=== PATIENT | female | born 1990 | race Caucasian/White ===

== ENCOUNTER 2020-07-03 07:48 | Day surgery (SDC) | payer OTHER ==
[~2020-07-03] VITALS: Ht 162.6 cm; Wt 77.7 kg
[2020-07-03] VITALS (7 sets, daily range): BP systolic 98–116; BP diastolic 56–80; PULSE 60–75; TEMP 98–98.3
[2020-07-03] MEDS ORDERED: PROTONIX 40MG T40 MG PO (08:23)
[2020-07-03] MEDS ORDERED: PROZAC40 MG PO (08:24)
[2020-07-03] MEDS ORDERED: KLONOPIN 0.5MG0.5 MG PO (08:25)
[2020-07-03] MEDS ORDERED: ADVIL MIGRAINE200 MG PO (08:26)
[2020-07-03] MEDS ORDERED: CLARITIN 1010 MG/TAB PO (08:27)
--- NOTE | 2020-07-03 09:25 | NUR ---
PATIENT TRANSPORTED PER CART BACK TO BAY 3 ACCOMPANIED BY BHAVIK RN. PATIENT TALKING WITH STAFF. PATIENT AMBULATED FROM CART TO CHAIR WITH STEADY GAIT. IN ROOM. PATIENT REQUESTS DRINK AND FOOD. PATEINT STATES SOME NAUSEA. ENCOURAGED TO START SLOW WITH DRINK.
--- NOTE | 2020-07-03 09:45 | NUR ---
0941 DR VOGEL IN ROOM AND SPEAKS WITH PATIENT AND . 0990 BP 98/66. PATIENT DENIES LIGHTHEADED AND DIZZY. PATIENT EATING MUFFIN AND DRINKING COFFEE. IV FLUID INFUSING. PATIENT STATES NAUSEA IS IMPROVED.
--- NOTE | 2020-07-03 09:54 | NUR ---
PATIENT STATES THAT SHE IS HAVING SOME CHEST DISCOMFORT MID CHEST RATES 2/10 THAT IS INTERMITTANT. VITALS SIGNS TAKEN. VITAL SIGNS STABLE. DISCOURAGED PATIENT FROM DRINKING COFFEE. PATIENT GIVEN SPRITE TO DRINK. NOTIFIED DR VOGEL OF ABOVE VERBALLY. SEE NEW ORDERS PLACED BY DR VOGEL. PHARMACY TO BRING MEDICATION.
--- NOTE | 2020-07-03 10:09 | NUR ---
VSS ON ROOM AIR. PATIENT EATS ALL OF MUFFIN AND DRINKING SPRITE. RECEIVED MAALOX PO FROM PHARMACY. PATIENT GIVEN MAALOX 1010 RECIEVED PROTONIX PO. PATIENT GIVEN PROTONIX.
--- NOTE | 2020-07-03 10:35 | NUR ---
VSS ON ROOM AIR. PATIENT REQUESTS TO USE RESTROOM. PATIENT AMBULATES WITH STEADY GAIT. VOIDS WITHOUT PROBLEMS. PATIENT STATES DISCOMFORT TO CHEST IS STILL LINGERING. SYMPTOMS HAVE NOT WORSENED. 1037 DR VOGEL NOTIFIED BY PHONE OF ABOVE INFORMATION. DR VOGEL RECOMMENDED PATIENT TO CONTINUE MAALOX DIRECTED, CAN GET AT DRUGSTORE. ENCOURAGE A SOFT DIET TODAY.
--- NOTE | 2020-07-03 10:46 | NUR ---
DISCHARGE INSTRUCTIONS GIVEN VERBAL AND DISCHARGE PACKET PROVIDED. PATIENT INFORMED ABOUT TAKING MAALOX TODAY AND SOFT.BLAND DIET. QUESTIONS ANSWERED AND PATIENT VOICED UNDERSTANDING. IV SITE DC'D WITH CATHETER TIP INTACT. PRESSURE AND BANDAGE APPLIED. PATIENT CHANGES INTO STREET CLOTHES. DISCHARGED PER WHEEL CHAIR. DRVING CAR.
== END 2020-07-03 10:55 | disposition home or self-care (01) ==
LOC: SDCO 07:48
DX: K21.00 Gastro-esophageal reflux disease with esophagitis, without bleeding (principal); K29.50 Unspecified chronic gastritis without bleeding; K29.71 Gastritis, unspecified, with bleeding; J30.9 Allergic rhinitis, unspecified; F32.9 Major depressive disorder, single episode, unspecified; F41.9 Anxiety disorder, unspecified; Z20.822 Contact with and (suspected) exposure to COVID-19; Z79.899 Other long term (current) drug therapy; Z88.0 Allergy status to penicillin; Z80.3 Family history of malignant neoplasm of breast; Z80.0 Family history of malignant neoplasm of digestive organs
CPT/HCPCS: J2704; J7030

== ENCOUNTER → 2020-08-20 | Outpatient (CLI) | payer OTHER ==
[~2020-08-20] MED LIST: ADVIL MIGRAINE200 MG PO; CLARITIN 1010 MG/TAB PO; KLONOPIN 0.5MG0.5 MG PO; PROTONIX 40MG T40 MG PO; PROZAC40 MG PO
== END ==
LOC: COL.RAD 07:27
DX: K21.9 Gastro-esophageal reflux disease without esophagitis (principal)
CPT/HCPCS: A9541

== ENCOUNTER → 2022-01-07 | Outpatient (CLI) | payer OTHER | LOC: COL.RAD 14:00 | DX: R41.4 Neurologic neglect syndrome (principal); G43.909 Migraine, unspecified, not intractable, without status migrainosus | CPT/HCPCS: A9575 ==